=== PATIENT | female | born 1985 | race Caucasian/White ===

== ENCOUNTER → 2017-01-03 | Outpatient (CLI) | payer OTHER | LOC: LAB 16:04 | DX: R73.01 Impaired fasting glucose (principal) | CPT/HCPCS: 36415; 84702 ==

== ENCOUNTER → 2017-02-15 | Outpatient (CLI) | payer BC | LOC: KOH-I 13:42 | DX: M41.84 Other forms of scoliosis, thoracic region (principal) | CPT/HCPCS: 72082 ==

== ENCOUNTER → 2017-02-22 | Outpatient (CLI) | payer BC | LOC: KOH-I 09:00 | DX: E06.9 Thyroiditis, unspecified (principal) | CPT/HCPCS: 76536 ==

== ENCOUNTER 2017-03-02 12:13 | Emergency (ER) | payer BC, OTHER ==
[2017-03-02 13:11] LABS: HEMOGLOBIN 14.8 gm/dl (12.3-15.3); RED BLOOD COUNT 5.22 M/UL (4.00-5.10); WHITE BLOOD COUNT 6.3 K/UL (4.5-11.0)
[2017-03-02 13:28] LABS: BUN/CREATININE RATIO 15 (0-10)
== END 2017-03-02 14:35 | disposition home or self-care (01) ==
LOC: ER1 12:13
PROVIDERS: Physician Assistant Medical
DX: K52.9 Noninfective gastroenteritis and colitis, unspecified (principal); Z90.49 Acquired absence of other specified parts of digestive tract
CPT/HCPCS: 36415; 80053; 81001; 82150; 83690; 84703; 85025; 96374; 96375; 99284; J2270; J2405; J7030; J7050; Q9962

== ENCOUNTER → 2017-03-04 | Outpatient (CLI) | payer BC, OTHER | LOC: KOH-I 09:24 | DX: R10.11 Right upper quadrant pain (principal); N92.0 Excessive and frequent menstruation with regular cycle | CPT/HCPCS: 76705; 76830 ==

== ENCOUNTER → 2017-03-09 | Outpatient (CLI) | payer BC, OTHER | LOC: RT 10:39 | DX: R00.2 Palpitations (principal); R07.9 Chest pain, unspecified | CPT/HCPCS: 93005 ==

== ENCOUNTER → 2017-03-15 | Outpatient (CLI) | payer BC, OTHER | LOC: NM 14:00 | DX: R10.11 Right upper quadrant pain (principal); R00.2 Palpitations; R07.9 Chest pain, unspecified; K59.00 Constipation, unspecified | CPT/HCPCS: ECHO; 78227; 93306; A9537; J2805 ==